=== PATIENT | female | born 1960 | race Caucasian/White ===

== ENCOUNTER 2025-06-29 16:07 | Emergency (ER) | payer OTHER, SELFPAY ==
[2025-06-29 16:20] VITALS: BP 170/92; PULSE 87; RESP 16; TEMP 36.7; O2SAT 99; BMI 23.9
[2025-06-29 19:36] VITALS: BP 159/90; PULSE 75; RESP 16; O2SAT 100
--- NOTE | 2025-06-29 19:56 | W.ED.SKABFB ---
HPI - Skin/Abscess/Foreign Bdy General: Chief complaint: Skin/Abscess/Foreign Body Stated complaint: abcess on chest Time Seen by Provider: 06/29/25 19:07 History of Present Illness: 65yo F w/cc of redness to her chest wall, noted today. It is an circular area of erythema that is painful, about golfball sized. There are a couple of nonblanchable lesions that appear to be bruising. She denies any trauma or inciting event. She has not had fever, malaise, n/v, chills. She was seen at urgent care and prescribed antibiotics which she has picked up but not started. She takes atorvastatin and buproprion, does not have any medication allergies. Related Data Previous Rx's ?Medication ?Instructions ?Recorded atorvastatin 80 mg tablet 80 mg PO QDAY 90 days #90 tabs 04/10/25 bupropion HCl 300 mg 24 hr tablet, 300 mg PO QAM #90 tabs 04/10/25 extended release clindamycin HCl 300 mg capsule 600 mg (2 x 300 mg) PO TID 10 days 06/29/25 (Cleocin HCl) #60 caps Allergies Allergy/AdvReac Type Severity Reaction Status Date / Time No Known Allergies Allergy Verified 06/29/25 16:26 [facility] PFS: Medical History (Updated 06/29/25 @ 19:57 by Darline Talamantes MD) History of renal stone History of skin cancer History of melanoma Diagnosed 2002 - on chest Mixed hyperlipidemia Chronic bilateral low back pain without sciatica Surgical History History of hysterectomy Partial hyst History of shoulder surgery Right History of cholecystectomy History of foot surgery Left - bunionectomy Family History Grandfather Tetanus Grandmother Heart disease Father Prostate cancer Lung cancer Brain cancer Mother Breast cancer Heart disease Social History Smoking and tobacco/nicotine status: former use of tobacco/nicotine Alcohol intake: current Alcohol intake frequency: holidays/special occasions only Substance/Drug Use: never Physical Exam Narrative: EXAM NARRATIVE: Vital signs were reviewed. Patient is alert and oriented. Patient is breathing comfortably, no increased WOB or accessory muscle use. SpO2 is above 95% on RA. Clear lungs b/l. No hypotension or tachycardia. Patient is moving all extremities, no deformity or gross injury. There is appox golfball sized lesion to her chest wall, midline. It is erythematous and painful. There is no fluctuance or purulent drainage. There are two smaller papules that are purpuric, perhaps consistent w/bruising. Course Vital Signs: Vital signs: Vital Signs Temperature 98.1 F 06/29/25 16:20 Pulse Rate 75 06/29/25 19:36 Respiratory Rate 16 06/29/25 19:36 Blood Pressure 159/90 06/29/25 19:36 Pulse Oximetry 100 06/29/25 19:36 Oxygen Delivery Me thod Room Air 06/29/25 19:36 MDM - Skin/Abscess/Foreign Bdy Medicial Decision Making 65yo F w/cc of wound check. Patient has noted erythema to the chest wall over the sternum, starting today. She has not had any systemic symptoms. Differential diagnosis includes, resolved 2, trauma/ecchymosis, localized cellulitis, abscess, epidermoid cyst, other. On exam she is helically stable. Skin findings may be consistent with a small localized area of cellulitis and antibiotics may be reasonable to try. She does not appear to be experiencing a medical emergency and I feel that she's appropriate for outpatient treatment and follow up. Patient was counseled on supportive care at home, given return precautions and discharged in stable condition with recommendation for outpatient follow-up with primary care nurse or doctor. No radiology studies performed this visit Discharge Plan Discharge Patient Disposition: Home Clinical Impression: Cellulitis of chest wall Condition: Stable Prescriptions: No Action clindamycin HCl [Cleocin HCl] 300 mg capsule 600 mg PO TID 10 Days Qty: 60 0RF bupropion HCl 300 mg tablet extended release 24 hr 300 mg PO QAM Qty: 90 1RF atorvastatin 80 mg tablet 80 mg PO QDAY 90 Days Qty: 90 1RF Discharge Orders: Discharge ED (Routine); Ordered 06/29/25 Ordered By: Darline Talamantes Referrals: Carola Oseguera DO [Primary Care Provider, Family Practice] Patient Instructions: Cellulitis (ED), Opioid Safety, Pain Management, Patient Portal & Kaye Instructions Activity Restrictions/Additional Instructions: Please continue to monitor your condition closely at home. Take Ibuprofen 400mg and Tylenol 500-1000mg every six hours for pain and inflammation. Start your antibiotic that you have been prescribed at urgent care when you get home. Monty the area of redness and continue to monitor for expansion. If your condition worsens or additional concerns arise, please return promptly to the emergency department for reassessment. Specifically, if you note worsening or develop fever or additional symptoms even after you take antibiotic for 48hr or longer, return to the ED. Follow up with your primary care doctor this upcoming week. Print Language: Zambian Coding Level of Care Code ED Manager Of Security for Michael Butler
== END 2025-06-29 20:19 | disposition home or self-care (01) ==
PROVIDERS: Emergency Provider Emergency Medicine; PCP Family Medicine
DX: L03.313 Cellulitis of chest wall (principal); Z87.891 Personal history of nicotine dependence; E78.5 Hyperlipidemia, unspecified; Z85.820 Personal history of malignant melanoma of skin; Z85.828 Personal history of other malignant neoplasm of skin
CPT/HCPCS: 99283; J9999